=== PATIENT | female | born 1955 | race Caucasian/White ===

== ENCOUNTER 2017-10-01 08:52 | Emergency (ER) | payer MEDICAID ==
[~2017-10-01] VITALS: Ht 162.6 cm; Wt 90.7 kg
[2017-10-01] MEDS ORDERED: FLUO10TA PO (09:07)
[2017-10-01] MEDS ORDERED: ALPR2TAB7 PO (09:07)
[2017-10-01] MEDS ORDERED: IRBE150T28 PO (09:07)
[2017-10-01] MEDS ORDERED: ATOR80TA PO (09:07)
[2017-10-01] MEDS ORDERED: FENO145T37 PO (09:07)
--- NOTE | 2017-10-01 09:28 | NUR ---
PATIENT TAKEN TO HER ROOM STATES THAT MOTHER HAS JUST AND SHE HAS BEEN FEELING STRESS THESE PASSED FEW DAYS AND OTHER FAMILY MEMBERS HAVE BEEN PRESSURING HER. PATIENT HAS BEEN CHANGING HER MEDICATION BY HER WELDER FABRICATOR. HAS HISTORY OF ANXIETY
[2017-10-01] MEDS ORDERED: LORAZEPAM 2 MG/1 ML VIAL IM ONE (09:30)
[2017-10-01] MEDS ORDERED: LORAZEPAM 2 MG/1 ML VIAL ONE (09:35)
[2017-10-01 09:55] LABS: BASOPHILS # (AUTO) 0.1 K/uL (0.0-8.0); BASOPHILS % (AUTO) 1.5 % (0.0-2.0); EOSINOPHILS # (AUTO) 0.1 K/uL (0.0-0.7); EOSINOPHILS % (AUTO) 0.7 % (0.0-7.0); HEMATOCRIT 46.5 % (31.2-41.9); HEMOGLOBIN 15.3 g/dL (10.9-14.3); LYMPHOCYTES # (AUTO) 3.1 K/uL (20.0-40.0); LYMPHOCYTES % (AUTO) 32.3 % (20.5-51.5); MEAN CORPUSCULAR HEMOGLOBIN 28.7 uug (24.7-32.8); MEAN CORPUSCULAR HGB CONC 33 g/dL (32.3-35.6); MEAN CORPUSCULAR VOLUME 87.2 fL (75.5-95.3); MONOCYTES # (AUTO) 0.8 K/uL (2.0-10.0); NEUTROPHILS # (AUTO) 5.5 K/uL (1.8-8.9); NEUTROPHILS % (AUTO) 57.5 % (38.5-71.5); PLATELET COUNT (AUTO) 329 K/uL (179-408); RED BLOOD CELL COUNT(AUTO) 5.34 MIL/uL (3.63-4.92); WHITE BLOOD COUNT (AUTO) 9.6 K/uL (3.8-11.8)
[2017-10-01 10:01] LABS: CREATININE 0.7 mg/dL (0.6-1.3)
--- NOTE | 2017-10-01 10:06 | NUR ---
PATIENT IN ROOM TAKING VARIOUS PHONE CALLS.
[2017-10-01 10:07] LABS: BILIRUBIN,DIRECT 0.1 mg/dL (0.0-0.2); BILIRUBIN,TOTAL 0.8 mg/dL (0.2-1.0); TOTAL PROTEIN, SERUM 7.7 g/dL (6.4-8.2)
--- NOTE | 2017-10-01 10:07 | NUR ---
WIATING FOR LAB RESULTS TO RETURN
--- NOTE | 2017-10-01 10:35 | NUR ---
PATIENT GIVEN DISCHARGE INSTRUCTIONS. 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 PATIENT SIGNED DISCHARGE PAPERS.
--- NOTE | 2017-10-01 13:02 | NUR ---
PATIENT SIGNED DISCHARGE PAPERWORK GIVEN A COPY OF LABS. SON AT BEDSIDE LISTENING TO INSTRUCTIONS. NO PRESCRIPTIONS GIVEN
== END 2017-10-01 10:40 | disposition home or self-care (01) ==
LOC: ER 08:52
DX: F41.9 Anxiety disorder, unspecified (principal); I10 Essential (primary) hypertension; E78.00 Pure hypercholesterolemia, unspecified; Z79.899 Other long term (current) drug therapy
CPT/HCPCS: 36415; 71045; 80048; 80076; 84443; 84484; 85025; 85379; 93005; 96372; 99285; A4663; J2060; 70030-TC

== ENCOUNTER 2022-05-13 12:34 | Emergency (ER) | payer MEDICARE, OTHER ==
[~2022-05-13] VITALS: Ht 162.6 cm; Wt 77.1 kg
[~2022-05-13 12:34] MED LIST: ALPR2TAB7 PO; ATOR80TA PO; FENO145T21 PO; FLUO10TA PO; IRBE150T28 PO
--- NOTE | 2022-05-13 12:48 | NUR ---
Patient discharged to home in stable condition. Written and verbal after care instructions given. Patient verbalizes understanding of instructions. Stressed follow up or return to ER for worsening s/s.
== END 2022-05-13 12:48 | disposition home or self-care (01) ==
LOC: ER 12:34
DX: S09.90XA Unspecified injury of head, initial encounter (principal); W01.0XXA Fall on same level from slipping, tripping and stumbling without subsequent striking against object, initial encounter; Y92.89 Other specified places as the place of occurrence of the external cause; I10 Essential (primary) hypertension; F41.9 Anxiety disorder, unspecified; Z79.899 Other long term (current) drug therapy
CPT/HCPCS: A4663